=== PATIENT | male | born 1980 | race Caucasian/White ===

== ENCOUNTER 2025-02-12 15:51 | Emergency (ER) | payer BC ==
[2025-02-12] MEDS: Bacitracin Oint 1 GM U/D Packet TOP ONE (16:39)
[2025-02-12] MEDS ORDERED: Alteplase 2 MG Vial ONE (17:22)
[2025-02-12] MEDS: Diphtheria/Tetanus Toxoids,Adult (Td) 0.5 ML Syringe IM ONE (17:29)
[2025-02-12] MEDS: Ibuprofen 400 MG Tab PO ONE (17:46)
== END 2025-02-12 17:40 | disposition home or self-care (01) ==
LOC: LL.ED 15:51
DX: S42.254A Nondisplaced fracture of greater tuberosity of right humerus, initial encounter for closed fracture (principal); S80.211A Abrasion, right knee, initial encounter; Z79.899 Other long term (current) drug therapy; Z23 Encounter for immunization; V00.141A Fall from scooter (nonmotorized), initial encounter; Y93.89 Activity, other specified
CPT/HCPCS: 73030-RT; 73200-RT; 90471; 90714; 99284; 99284-25; A9270-GY